=== PATIENT | female | born 1985 | race Caucasian/White ===

== ENCOUNTER 2017-01-25 07:51 | Emergency (ER) | payer BC ==
[2017-01-25 08:03] VITALS: BP 122/72
--- NOTE | 2017-01-25 08:20 | UC ---
UC General HPI - HPI Summary HPI Summary: Patient has had 2 days of diarrhea, she denies any vomiting, has alot of discomfort and cramping. - History of Current Complaint Chief Complaint: UCGI Stated Complaint: ABDOMINAL CRAMPING Time Seen by Provider: 01/25/17 08:07 Hx Obtained From: Patient Onset/Duration: Sudden Onset, Lasting Days Timing: Constant Onset Severity: Moderate Current Severity: Moderate Associated Signs & Symptoms: Positive: Diarrhea - Allergy/Home Medications Allergies/Adverse Reactions: Allergies Allergy/AdvReac Type Severity Reaction Status Date / Time No Known Allergies Allergy Verified 01/25/17 07:58 Home Medications: Home Medications Multiple Vitamin [Multivitamins] 1 cap PO DAILY 01/25/17 [History Confirmed 05/08] PMH/Surg Hx/FS Hx/Imm Hx Previously Healthy: Yes Respiratory History Of: Reports: Bronchitis - X 1 - Surgical History Surgical History: Yes Surgery Procedure, Year, and Place: Right Ankly ORIF, 2002, [place]; [place] - Family History Known Family History: Positive: Hypertension - Social History Alcohol Use: Occasionally Substance Use Type: None Smoking Status (MU): Never Smoked Tobacco - Immunization History Most Recent Influenza Vaccination: July 2016 Review of Systems Constitutional: Negative Skin: Negative Eyes: Negative ENT: Negative Respiratory: Negative Cardiovascular: Negative Gastrointestinal: Abdominal Pain, Diarrhea Genitourinary: Negative Motor: Negative Neurovascular: Negative Musculoskeletal: Negative Neurological: Negative Psychological: Negative All Other Systems Reviewed And Are Negative: Yes Physical Exam Triage Information Reviewed: Yes Appearance: No Pain Distress, Well-Nourished, Ill-Appearing Vital Signs: Initial Vital Signs Temp 97.8 F 01/25/17 07:59 Pulse 79 01/25/17 07:59 Resp 16 01/25/17 07:59 BP 122/72 01/25/17 07:59 Pulse Ox 100 01/25/17 07:59 Vital Signs Reviewed: Yes Eye Exam: Normal ENT Exam: Normal ENT: Positive: Normal ENT inspection, Hearing grossly normal, Pharynx normal, TMs normal Dental Exam: Normal Neck exam: Normal Neck: Positive: Supple, Nontender, No Lymphadenopathy Respiratory Exam: Normal Respiratory: Positive: Chest non-tender, Lungs clear, Normal breath sounds Cardiovascular Exam: Normal Cardiovascular: Positive: RRR, No Murmur, Pulses Normal Abdominal Exam: Other - diffuse tenderness, Abdomen Description: Positive: No Organomegaly, Distended - negative, Peritoneal Signs - negative, Pulsatile Mass - negative Bowel Sounds: Positive: Present Musculoskeletal Exam: Normal Musculoskeletal: Positive: Strength Intact, ROM Intact, No Edema Neurological Exam: Normal Neurological: Positive: Alert, Muscle Tone Normal Psychological Exam: Normal Skin Exam: Normal Course/Dx - Course Course Of Treatment: hx obtained, exam performed, meds reviewed, treated for cramping with bentyl and educated on importance of hydration. - Differential Dx - Multi-Symptom Provider Diagnoses: diarrhea. abdominal cramping Discharge - Discharge Plan Condition: Stable Disposition: HOME Prescriptions: Dicyclomine CAP* [Bentyl CAP*] 10 mg PO TID PRN #21 cap PRN Reason: discomfort Patient Education Materials: Acute Diarrhea (ED) Referrals: Juanita Arredondo MD [Primary Care Provider] - Additional Instructions: Take the medication as prescribed for cramping. Continue to push fluids and eat as tolerated, Follow up if diarrhea continues and you are unable to stay hydrated, you notice any changes in bowels, blood or smell.
== END 2017-01-25 08:20 | disposition home or self-care (01) ==
LOC: UCCORT 07:51
DX: R10.84 Generalized abdominal pain (principal); R19.7 Diarrhea, unspecified
CPT/HCPCS: 99212; G0463

== ENCOUNTER 2018-02-10 07:57 | Inpatient (IN) | payer BC ==
[2018-02-10] MEDS ORDERED: Misoprostol TAB* 100 MCG PO ONE (08:53)
[2018-02-10 09:49] LABS: ABS Basophils 0 10^3/ul (0-0.2); ABS Eosinophils 0.1 10^3/ul (0-0.6); ABS Lymphocytes 1.4 10^3/ul (1.0-4.8); ABS Monocytes 0.6 10^3/ul (0-0.8); ABS Neutrophils 5.4 10^3/ul (1.5-7.7); ABS Nucleated RBC 0 10^3/ul; Eosinophil % 1.2 % (0-6); Hematocrit 41 % (35-47); Hemoglobin 14.2 g/dl (12.0-16.0); Lymphocyte % 18.9 % (25-47); Mean Corpuscular HGB Conc 34 g/dl (31-36); Mean Corpuscular Hemoglobin 32 pg (27-31); Mean Corpuscular Volume 93 fL (80-97); Nucleated Red Blood Cells % 0.1; Platelet Count 133 10^3/ul (150-450); Red Blood Count 4.46 10^6/ul (4.0-5.4); Red Cell Distribution Width 13 % (10.5-15); White Blood Count 7.6 10^3/ul (3.5-10.8)
--- NOTE | 2018-02-10 11:21 | HP ---
General Information - General Information Maternal Age: 32 Grav: 2 Para: 0 SAB: 1 IEA: 0 Estimated Due Date: 02/03/18 Determined By: LMP Gestational Age in Weeks and Days: 41 Weeks and 0 Days Maternal Blood Type and Rh: O Positive - Results this Serology/RPR Result: Non-Reactive Rubella Result: Immune HBsAg Result: Negative HIV Result: Negative GBS Culture Result: Positive Past Medical History Delivery History: See Records Delivery History Comment: Primip Pertinent Past Medical History: Non-Contributory Pertinent Past Surgical History: See Records Past Surgical History Comment: Cyril tooth extraction (2006) ORIF Right ankle, [address] (2002) Pertinent Family History: See Records Family History Comment: HTN, high cholesterol, DC, DM, Alzheimers - Antepartal Records Antepartal Records: Reviewed, Uncomplicated Review of Systems Constitutional: Comfortable CV Complaint: No Respiratory: Shortness of Breath: No Gastrointestinal: No Nausea/Vomiting, Normal Bowel Movement Genitourinary: No Dysuria, No Bleeding, No Leaking Fluid Musculoskeletal: No Complaint Neurological: No Headache, No Visual Changes Movement: Normal Exam Allergies/Adverse Reactions: Allergies No Known Allergies Allergy (Verified 01/25/17 07:58) BP 126/82 HR 79 RR 20 T 97.3 Lab Values - Entire Visit: Laboratory Tests 02/10/18 02/10/18 09:30 09:30 WBC 7.6 RBC 4.46 Hgb 14.2 Hct 41 MCV 93 MCH 32 H MCHC 34 RDW 13 Plt Count 133 L MPV 10.0 Neut % (Auto) 71.3 Lymph % (Auto) 18.9 L [place] % (Auto) 8.2 H Eos % (Auto) 1.2 Baso % (Auto) 0.4 Absolute Neuts (auto) 5.4 Absolute Lymphs (auto) 1.4 Absolute Monos (auto) 0.6 Absolute Eos (auto) 0.1 Absolute Basos (auto) 0 Absolute Nucleated RBC 0 Nucleated RBC % 0.1 Blood Type O Positive Antibody Screen Negative - Measurements Height: 5 ft 3 in Weight: 147 lb Weight in lbs: 147 Body Mass Index (BMI): 26.0 Pre- Weight: 118 lb Weight Gained This : 29 lbs and 0 ozs - Exam Abdomen: No Upper Quadrant Pain Breast: Breast Exam Deferred CVA: No CVA Tenderness Extremities: No Edema Heart: Normal Rhythm/Heart Sounds HEENT: No Significant Findings Lungs: Clear Bilaterally Rectal: Rectal Exam Deferred Reflexes: DTR 2+ Thyroid: No Thyromegaly - Cervical Exam 1-2cm/70%/vtx -1 Molina's Score: 5. Unfavorable for induction - Abdominal Exam Abdomen Exam: Non-Tender, Fundal Height Consistent with Dates - Membranes Membrane Status: Intact - Ultrasound/Biophysical Profile Ultrasound Status: Not Done EFM Findings - External Monitor Findings Baseline Heart Rate: 145 External Monitor Findings: Accelerations Present, No Pattern of Variable or Late Decelerations, Variability Moderate, Baseline Stable External Monitor Findings Comment: No evidence of metabolic acidemia Contractions: Irregular, Mild Assessment/Plan - Reason for Visit Reason for Visit: IUP at 41 weeks here for postdate ripening/induction S/P Cervidil x 1 on 02/09/18 No evidence of metabolic acidemia - Obstetrical Risk Factors Obstetrical Risk Factors: GBS Positive - Plan Plan: Induction, Cervical Ripening Plan Comment: PARQ repeat Cervidil vs. trial oral or vaginal misoprostol. All ?s answered. At this time pt and FOB consent to trial of oral misoprostol given little benefit from Cervidil yesterday. Plan GBS prophylaxis with spontaneous rupture or onset active labor. Dr. Ramey aware of pt presence and condition. Agrees with plan - Date/Time of Admission Date of Admission: 02/10/18 Time of Admission: 08:30
[2018-02-10] MEDS: Penicillin G Potassium IV* 5,000,000 UNITS in NS 0.9% 100 ML* 100 ML IVPB ONE ×2 (11:42→15:09)
[2018-02-10] MEDS: Penicillin G Potassium IV* 2,500,000 UNITS in NS 0.9% 100 ML* 100 ML IVPB SCH ×4 (11:42→23:00)
[2018-02-10] MEDS ORDERED: Oxytocin in LR* 20 UNITS/1,000 ML BAG IVPB ONE (14:53)
[2018-02-10] MEDS ORDERED: Oxytocin in LR* 20 UNITS/1,000 ML BAG IVPB SCH (15:00)
[2018-02-11] MEDS: Penicillin G Potassium IV* 2,500,000 UNITS in NS 0.9% 100 ML* 100 ML IVPB SCH ×3 (02:56→11:17)
[2018-02-11] MEDS ORDERED: OBEPIDURAL* 250 ML EPIDURAL ONE (05:57)
[2018-02-11] MEDS ORDERED: Sodium Citrate/Citric Acid* 15 ML UDC PO PRN (06:58)
[2018-02-11] MEDS ORDERED: Phenylephrine IV* 40 MCG/ML 10 ML SYRINGE IV PUSH PRN ×2 (06:58)
[2018-02-11] MEDS ORDERED: Famotidine TAB* 20 MG PO PRN (06:58)
[2018-02-11] MEDS ORDERED: EPHEDrine (Pressors)* 50 MG/ML VIAL IV PUSH PRN ×2 (06:58)
[2018-02-11] MEDS ORDERED: OBEPIDURAL* 250 ML EPIDURAL SCH (07:00)
[2018-02-11] MEDS ORDERED: Acetaminophen TAB* 325 MG PO PRN (13:05)
[2018-02-11] MEDS ORDERED: Witch Hazel PAD* JAR TOPICAL PRN (13:05)
[2018-02-11] MEDS ORDERED: Dibucaine 1% 28.35 GM TUBE PR PRN (13:05)
[2018-02-11] MEDS ORDERED: Glycerin ADULT SUPP PR PRN (13:05)
[2018-02-11] MEDS ORDERED: Dibucaine 1% 28.35 GM TUBE ONE (13:10)
[2018-02-11] MEDS ORDERED: Witch Hazel PAD* JAR ONE (13:11)
[2018-02-11] MEDS ORDERED: Oxytocin in LR* 20 UNITS/1,000 ML BAG IVPB SCH (14:00)
[2018-02-11] MEDS: Ibuprofen TAB* 600 MG PO PRN ×2 (15:17→21:25)
[2018-02-11] MEDS: Docusate CAP* 100 MG PO SCH ×2 (15:17→20:29)
[2018-02-11] MEDS ORDERED: Simethicone TAB* 80 MG TAB.CHEW PO SCH (17:30)
[2018-02-12] MEDS: Ibuprofen TAB* 600 MG PO PRN ×2 (06:13→16:12)
[2018-02-12 06:32] LABS: ABS Basophils 0 10^3/ul (0-0.2); ABS Eosinophils 0 10^3/ul (0-0.6); ABS Lymphocytes 1.8 10^3/ul (1.0-4.8); ABS Monocytes 0.7 10^3/ul (0-0.8); ABS Neutrophils 8.9 10^3/ul (1.5-7.7); ABS Nucleated RBC 0 10^3/ul; Eosinophil % 0.4 % (0-6); Hematocrit 33 % (35-47); Hemoglobin 11.5 g/dl (12.0-16.0); Lymphocyte % 15.3 % (25-47); Mean Corpuscular HGB Conc 35 g/dl (31-36); Mean Corpuscular Hemoglobin 32 pg (27-31); Mean Corpuscular Volume 92 fL (80-97); Mean Platelet Volume 9.9 um3 (7.4-10.4); Nucleated Red Blood Cells % 0; Platelet Count 105 10^3/ul (150-450); Red Blood Count 3.59 10^6/ul (4.0-5.4); Red Cell Distribution Width 13 % (10.5-15); White Blood Count 11.5 10^3/ul (3.5-10.8)
[2018-02-12] MEDS ORDERED: Ferrous Gluconate TAB* 324 MG TAB PO SCH (09:00)
[2018-02-12] MEDS: Docusate CAP* 100 MG PO SCH ×3 (09:32→20:04)
--- NOTE | 2018-02-12 19:07 | PTEDU ---
Patient Name: ORZINA DAVILA ROZINA DAVILA selected video: Follow Me Mum: The [employer] to Successful to view on 02/13/20 at 7:06:26 PM [id number]
[2018-02-13] MEDS: Ibuprofen TAB* 600 MG PO PRN (06:02)
[2018-02-13 08:24] VITALS: BP 124/81
--- NOTE | 2018-02-13 08:34 | PTEDU ---
Patient Name: ROZINA DAVILA GIOVANNIROZINA REAL selected video: Never Ever Shake a Baby to view on 02/13/2018 at 8:33:54 AM [id number]
[2018-02-13] MEDS: Docusate CAP* 100 MG PO SCH (10:41)
== END 2018-02-13 11:19 | disposition home or self-care (01) | DRG 560 ==
LOC: MCHOBOUT 07:57 → MCHOB 08:28
PROVIDERS: ADMIT Midwife; ATTEND Midwife
PROC: 10E0XZZ Delivery of Products of Conception, External Approach (ICD-10-PCS; principal; 2018-02-11)
PROC: 3E033VJ Introduction of Other Hormone into Peripheral Vein, Percutaneous Approach (ICD-10-PCS; 2018-02-11)
PROC: 10907ZC Drainage of Amniotic Fluid, Therapeutic from Products of Conception, Via Natural or Artificial Opening (ICD-10-PCS; 2018-02-11)
PROC: 0HQ9XZZ Repair Perineum Skin, External Approach (ICD-10-PCS; 2018-02-11)
DX: O48.0 Post-term pregnancy (principal); O32.8XX0 Maternal care for other malpresentation of fetus, not applicable or unspecified; O99.824 Streptococcus B carrier state complicating childbirth; O70.0 First degree perineal laceration during delivery; O69.81X0 Labor and delivery complicated by cord around neck, without compression, not applicable or unspecified; Z3A.41 41 weeks gestation of pregnancy; Z37.0 Single live birth
CPT/HCPCS: 36415; 85025; 86850; 86900; 86901; A9270-GY; J2540; S0191

== ENCOUNTER 2019-02-26 07:56 | Emergency (ER) | payer BC ==
[2019-02-26 08:26] VITALS: BP 120/75
--- NOTE | 2019-02-26 08:58 | UC ---
Abdominal Pain Female HPI - HPI Summary HPI Summary: Pt presents with c/o waking this morning at ~ 3 am with c/o sharp, colicy abdominal pain at umbilicus. Pt states that she took OTC peptobismol, drank sharri hugo and went back to sleep. She had one episode of diarrhea. Titus fever chill or hx of GI disorder. - History of Current Complaint Chief Complaint: UCAbdominalPain Stated Complaint: ABD PAIN Time Seen by Provider: 02/26/19 08:46 Hx Obtained From: Patient Hx Last Menstrual Period: 02/22/19 ?: No Onset/Duration: Sudden Onset, Lasting Minutes Timing: Intermittent Episodes Lasting: Severity Initially: Severe Severity Currently: None Pain Intensity: 0 Location: Other - umbiliucus Radiates: Yes Radiates to: Other - diffuse Character: Colicy, Sharp Aggravating Factor(s): Nothing Alleviating Factor(s): Spontaneous Resolution Associated Signs and Symptoms: Positive: Nausea, Diarrhea - Risk Factors Ectopic Risk Factor: Negative Ovarian Torsion Risk Factor: Reproductive Age Allergies/Adverse Reactions: Allergies Allergy/AdvReac Type Severity Reaction Status Date / Time No Known Allergies Allergy Verified 02/26/19 08:20 Home Medications: Home Medications Bismuth Subsalicylate [Pepto-Bismol] 2 tab PO ONCE PRN 02/26/19 [History Confirmed 02/26/19] Norgestimate-Ethinyl Estradiol [Ortho Tri-Cyclen Lo Tablet] 1 each PO DAILY 06/09 [History Confirmed 02/26/19] PMH/Surg Hx/FS Hx/Imm Hx Previously Healthy: Yes - Surgical History Surgical History: Yes Surgery Procedure, Year, and Place: Right Ankly ORIF, 2002, [place]; [place] - Family History Known Family History: Positive: Hypertension - Social History Occupation: Employed Full-time Lives: With Family Alcohol Use: None Substance Use Type: None Smoking Status (MU): Never Smoked Tobacco Have You Smoked in the Last Year: No - Immunization History Most Recent Influenza Vaccination: nov 2017 Most Recent Pneumonia Vaccination: none Vaccination Up to Date: Yes Review of Systems All Other Systems Reviewed And Are Negative: Yes Constitutional: Positive: Negative Skin: Positive: Negative Eyes: Positive: Negative ENT: Positive: Negative Respiratory: Positive: Negative Gastrointestinal: Positive: Abdominal Pain, Diarrhea, Nausea Genitourinary: Positive: Negative Motor: Positive: Negative Neurovascular: Positive: Negative Musculoskeletal: Positive: Negative Neurological: Positive: Negative Psychological: Positive: Negative Is Patient Immunocompromised?: No Physical Exam Triage Information Reviewed: Yes Appearance: Well-Appearing Vital Signs: Initial Vital Signs Temp 97.7 F 02/26/19 08:21 Pulse 68 02/26/19 08:21 Resp 16 02/26/19 08:21 BP 120/75 02/26/19 08:21 Pulse Ox 100 02/26/19 08:21 Vital Signs Reviewed: Yes Eye Exam: Normal ENT Exam: Normal Dental Exam: Normal Neck exam: Normal Respiratory Exam: Normal Cardiovascular Exam: Normal Abdomen Description: Positive: Other: - umbilicus pain Bowel Sounds: Positive: Present Musculoskeletal Exam: Normal Neurological Exam: Normal Psychological Exam: Normal Skin Exam: Normal Abd Pain Female Course/Dx - Course Course Of Treatment: I discussed with the pt the need to monitor for worsening symptoms and to go directly to the closest ER for further evaluation and treatment . Pt verbalized understanding and agreed to plan of care. - Differential Dx/Diagnosis Differential Diagnosis: Appendicitis, Gall Bladder Disease, Irritable Bowel Syndrome, Urinary Tract Infection Provider Diagnosis: Abdominal pain Discharge - Sign-Out/Discharge Documenting (check all that apply): Patient Departure All imaging exams completed and their final reports reviewed: No Studies - Discharge Plan Condition: Stable Disposition: HOME Patient Education Materials: Acute Abdominal Pain (ED) Referrals: Juanita Arredondo MD [Primary Care Provider] - If Needed Additional Instructions: PLEASE NOTE, THAT IF YOUR SYMPTOMS WORSEN, INCLUDING BUT NOT LIMITED TO , FEVER , VOMITING, DIARRHEA, OR INCREASE IN PAIN, PLEASE GO DIRECTLY TO THE CLOSEST EMERGENCY ROOM. - Billing Disposition and Condition Condition: STABLE Disposition: Home - Attestation Statements Provider Attestation: Per institutional requirements, I have reviewed the chart, however, I was not consulted specifically or made aware of this patient by the midlevel provider. I did not personally evaluate, interact with , or disposition this patient.
== END 2019-02-26 09:04 | disposition home or self-care (01) ==
LOC: UCCORT 07:56
DX: R10.33 Periumbilical pain (principal); R19.7 Diarrhea, unspecified; R11.0 Nausea
CPT/HCPCS: 81003; 99211; G0463

== ENCOUNTER 2020-02-22 09:43 | Emergency (ER) | payer BC, OTHER ==
--- OUTSIDE RECORDS SUMMARY | 2020-02-22 09:57 | XMS REPORT | Continuity of Care Document ---
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 Unavailable Problems Description No Active Problems Social History Type Date Description Comments Sex Unknown Tobacco Use Start: Unknown Never Smoked Cigarettes ETOH Use Alcohol Use Prior To 0-3 glasses wine/week Recreational Drug Use Does Not Use Drugs Tobacco Use Start: Unknown Patient has never smoked Smoking Status Reviewed: 01/04/20 Patient has never smoked Seat Belt/Car Seat Always uses seat belt Allergies, Adverse Reactions, Alerts Description No Known Drug Allergies Medications Description No Active Medications Medications Administered in Office Medication SIG Qnty Indications Ordering Provider Date PT SCRN Tbco Id as Non User Sidra Nash CNM 01/04/2020 Injection PT SCRN Tbco Id as Non User Felicia Vargas CNM 08/25/2018 Injection Immunizations CPT Code Status Date Vaccine Lot # [id number] Given 11/25/2017 Tetnus, Diptheria Toxoids And Acellular Pertussis, TB2R2 PT > 7Yrs Old Vital Signs Date Vital Result Comment 01/04/2020 2:18pm BP Systolic 106 mmHg BP Diastolic 62 mmHg Height 63.25 inches 5'3.25" Weight 125.00 lb BMI (Body Mass Index) 22.0 kg/m2 Last Menstrual Period [id number] 2 Parity 1 08/25/2018 12:50pm BP Systolic 104 mmHg BP Diastolic 62 mmHg Height 63.25 inches 5'3.25" Weight 122.00 lb BMI (Body Mass Index) 21.4 kg/m2 Last Menstrual Period [id number] 2 Parity 1 Results Description No Information Available Procedures Description No Information Available Medical Devices Description No Information Available Encounters Type Date Location Provider Dx Diagnosis Office Visit 01/04/2020 [facility] Sidra Nash CNM Z01.419 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
--- NOTE | 2020-02-22 10:02 | UC ---
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 Poor sleep secondary to cough, with onset of productive cough. Improved 2 days ago but cough persisted. Had increased production 2 days ago, felt better yesterday, but increase in cough yesterday. Airways feel raw from coughing with scant blood in yellow sputum yesterday. Uncommonly has respiratory illness. Had bronchitis 2 years ago. Might have some environmental allergies. Using tylenol regularly, using decongestants and combined cough and cold preparations, including robitussin. Mucinex has given some relief. No myalgias, no apparent fever. Headache initially, now resolved. Temp not higher than 98.4. No apparent shortness of breath. Appetite mildly decreased. No nausea or vomiting. No known infectious contacts. Has been working minimally, with only one patient contact this this week. [facility] PMH Previously Healthy: Yes Musculoskeletal History: Denies: Hx Rheumatoid Arthritis, Hx Osteoporosis - Surgical History Surgery Procedure, Year, and Place: Right Ank[place] ORIF, 2002, [place]; [place] Infectious Disease History: No - Family History Known Family History: Positive: Hypertension - Social History Occupation: Employed Full-time Lives: With Family Alcohol Use: None Substance Use Type: Reports: None Smoking Status (MU): Never Smoked Tobacco Have You Smoked in the Last Year: No UC Telehealth ROS All Other Systems Reviewed And Are Negative: Yes Positive: Fatigue - poor sleep Eyes: Negative Positive: Nasal Discharge - scant Cardiovascular: Negative Positive: Cough. Negative: Shortness Of Breath Positive: Other - mild decrease in appetite Genitourinary: Negative Musculoskeletal: Negative Skin: Negative Telehealth PE Appearance: Positive: Ill-Appearing - looks congested and mildly unwell. Speaking easily with good color and no apparent SOB. Psychiatric: Positive: Normal, Affect/Mood Appropriate [facility] Course/Dx Assessment/Plan: Given her work as a PT, will screen for COVID. Given green production, will treat with azithromycin and tessalon perles. Provider Diagnoses: Bronchitis [facility] Disposition Provider Recommendation for Treatment: Urgent Care Telehealth Visit: Patient Consented Verbally to Telehealth Visit Telehealth Patient Statement: The patient should understand that they are communicating with their provider via a secure communication platform and that all the same privacy and confidentiality rules apply. They will also be responsible for copayments or coinsurances that apply to any Telehealth visit. Patient Identifiers: 2 Patient Identifiers Verified for Telehealth Visit - name and date of Telehealth Visit Start Time: 10:05 Telehealth Visit End Time: 10:15 Telehealth Provider Attestation: The above services were appropriate to provide in a Telehealth setting.
--- NOTE | 2020-02-25 08:36 | UC ---
- Progress Note Progress Note: Labs reviewed: Odalys aguero RN to inform patient of the lab results. Course/Dx - Diagnoses Provider Diagnoses: Bronchitis Discharge ED - Sign-Out/Discharge Documenting (check all that apply): Post-Discharge Follow Up All imaging exams completed and their final reports reviewed: No Studies - Discharge Plan Condition: Stable Disposition: HOME Prescriptions: Azithromyxin IDALIA (NF) [Z-Idalia (Zithromax) 250 mg tabs #6] 2 tab PO .TODAY, THEN 1 DAILY #6 tab Benzonatate CAP* [Tessalon 100 MG CAP*] 100 mg PO TID PRN #30 cap PRN Reason: Cough Patient Education Materials: Acute Bronchitis (ED) Referrals: Juanita Arredondo MD [Primary Care Provider] - - Billing Disposition and Condition Condition: STABLE Disposition: Home
== END 2020-02-22 10:39 | disposition home or self-care (01) ==
LOC: UCCORT 09:43
DX: J40 Bronchitis, not specified as acute or chronic (principal); Z20.828 Contact with and (suspected) exposure to other viral communicable diseases
CPT/HCPCS: 87635; 99212; G0463

== ENCOUNTER 2021-03-07 17:10 | Inpatient (IN) ==
[2021-03-07] MEDS ORDERED: Lactated Ringers 1000 ml BAG 1,000 ML IV ONE ×2 (17:54→20:30)
[2021-03-07] MEDS ORDERED: Buffered Lidocaine 1% SYRIN 1 ml INTRADERM ONE (17:54)
[2021-03-07] MEDS ORDERED: Lactated Ringers 1000 ml BAG 1,000 ML IV SCH ×3 (18:00→23:00)
[2021-03-07 18:15] LABS: ABS Lymphocytes 1.7 10^3/ul (1.0-4.8); ABS Monocytes 0.7 10^3/ul (0-0.8); ABS Neutrophils 6.6 10^3/ul (1.5-7.7); Eosinophil % 0.3 %; Hematocrit 40 % (35-47); Hemoglobin 14.2 g/dL (12.0-16.0); Lymphocyte % 18.8 %; Mean Corpuscular HGB Conc 35 g/dL (31-36); Mean Corpuscular Hemoglobin 33 pg (27-31); Mean Corpuscular Volume 94 fL (80-97); Mean Platelet Volume 9.8 fL (7.4-10.4); Platelet Count 140 10^3/uL (150-450); Red Blood Count 4.29 10^6 /uL (3.70-4.87); Red Cell Distribution Width 13 % (10-15)
[2021-03-07 18:38] LABS: Urine Benzodiazepine Screen None Detected (None Detect); Urine Cannabinoids Screen None Detected (None Detect); Urine Opiates Screen None Detected (None Detect)
[2021-03-07] MEDS ORDERED: OBEPIDURAL 250 ML EPIDURAL ONE (19:10)
[2021-03-07] MEDS ORDERED: Phenylephrine 40 mcg/mL 10mL (400mcg) SYRINGE IV PUSH PRN ×2 (20:30)
[2021-03-07] MEDS ORDERED: EPHEDrine (Pressors) 50 MG/ML VIAL IV PUSH PRN ×2 (20:30)
[2021-03-07] MEDS ORDERED: Sodium Citrate/Citric Acid LIQ 15 ML UDC PO PRN (20:30)
[2021-03-07] MEDS ORDERED: Lactated Ringers 1000 ml BAG 500 ML IV PRN ×2 (20:30)
[2021-03-07] MEDS ORDERED: OBEPIDURAL 250 ML EPIDURAL SCH (21:00)
[2021-03-07 21:02] LABS: Urine Appearance Clear; Urine Bilirubin Negative (Negative); Urine Blood Negative (Negative); Urine Color Yellow; Urine Glucose Negative (Negative); Urine Ketones Negative (Negative); Urine Nitrite Negative (Negative); Urine Protein Negative (Negative); Urine Specific Gravity 1.016 (1.002-1.030); Urine Urobilinogen Negative (Negative)
[2021-03-07] MEDS ORDERED: Oxytocin in LR 20 UNITS/1,000 ML BAG IVPB ONE (22:11)
[2021-03-07] MEDS ORDERED: Witch Hazel PAD JAR TOPICAL PRN (22:25)
[2021-03-07] MEDS ORDERED: Dibucaine 1% OINT 28.35 GM TUBE PR PRN (22:25)
[2021-03-07] MEDS ORDERED: Oxytocin in LR 20 UNITS/1,000 ML BAG IVPB SCH (23:00)
[2021-03-08 07:42] LABS: ABS Lymphocytes 1.8 10^3/ul (1.0-4.8); ABS Monocytes 0.8 10^3/ul (0-0.8); Eosinophil % 0.4 %; Hematocrit 35 % (35-47); Hemoglobin 12.2 g/dL (12.0-16.0); Lymphocyte % 18.9 %; Mean Corpuscular HGB Conc 35 g/dL (31-36); Mean Corpuscular Hemoglobin 33 pg (27-31); Mean Corpuscular Volume 94 fL (80-97); Platelet Count 118 10^3/uL (150-450); Red Blood Count 3.72 10^6 /uL (3.70-4.87); Red Cell Distribution Width 13 % (10-15); White Blood Count 9.7 10^3/uL (3.5-10.8)
[2021-03-09 09:24] VITALS: BP 130/87
== END 2021-03-09 11:45 | disposition home or self-care (01) ==
LOC: MCHOBOUT 17:10 → MCHOB 17:42
PROVIDERS: ADMIT Midwife; ATTEND Midwife